=== PATIENT | female | born 2000 | race Caucasian/White ===

== ENCOUNTER 2022-10-28 23:28 | Inpatient (IN) | payer BC ==
[~2022-10-28] VITALS: Ht 154.9 cm; Wt 60.8 kg
[2022-10-28] MEDS ORDERED: LORazepam 2 MG TAB PO PRN (23:55)
[2022-10-28] MEDS ORDERED: IBUPROFEN 400MG TAB PO PRN (23:55)
[2022-10-28] MEDS ORDERED: MAALOX 30 ML SUSP *UDC PO PRN (23:55)
[2022-10-28] MEDS ORDERED: MOM 30ML SUSPENSION UDC PO PRN (23:55)
[2022-10-29] MEDS ORDERED: FLUO20CA22 PO (00:04)
[2022-10-29] MEDS ORDERED: HOME MED LIST COMPLETE! XX SCH (00:05)
[2022-10-29] MEDS: traZODone 50 MG TAB PO PRN ×2 (01:41→21:24)
[2022-10-29 01:49] VITALS: BP 127/81
[2022-10-29 01:50] VITALS: BP 127/81
[2022-10-29] MEDS: FOLIC ACID 1MG TAB PO SCH (08:38)
[2022-10-29] MEDS: MULTIVITAMINS/MINERALS THERAP 1 TAB PO SCH (08:38)
[2022-10-29] MEDS: THIAMINE 100 MG TAB PO SCH ×2 (08:38→21:23)
[2022-10-29] MEDS ORDERED: FLUoxetine 20MG CAP PO SCH (09:00)
[2022-10-29] MEDS ORDERED: NICOTINE 14 MG/24 HR TRANSDERMAL TD PRN (09:35)
[2022-10-29 12:48] VITALS: BP 125/72
[2022-10-29 16:12] VITALS: BP 103/58
[2022-10-29 20:59] VITALS: BP 121/60
[2022-10-29] MEDS: FLUoxetine 20MG CAP PO SCH (21:23)
[2022-10-30 06:15] VITALS: BP 119/66
[2022-10-30] MEDS: THIAMINE 100 MG TAB PO SCH ×2 (09:24→21:28)
[2022-10-30] MEDS: MULTIVITAMINS/MINERALS THERAP 1 TAB PO SCH (09:25)
[2022-10-30] MEDS: FOLIC ACID 1MG TAB PO SCH (09:25)
[2022-10-30] MEDS: FLUTICASONE PROP 0.05% NASAL SPRAY 16 GM (FLONASE) NARES SCH ×2 (10:57→21:27)
[2022-10-30 12:30] VITALS: BP 122/72
[2022-10-30 15:46] VITALS: BP 131/85
[2022-10-30 20:30] VITALS: BP 131/85
[2022-10-30] MEDS ORDERED: FLUTICASONE PROP 0.05% NASAL SPRAY 16 GM (FLONASE) NARES SCH (21:00)
[2022-10-30] MEDS: traZODone 50 MG TAB PO PRN (21:28)
[2022-10-30] MEDS: FLUoxetine 20MG CAP PO SCH (21:28)
[2022-10-31 06:17] VITALS: BP 114/61
[2022-10-31 07:00] VITALS: BP 114/61
[2022-10-31] MEDS: MULTIVITAMINS/MINERALS THERAP 1 TAB PO SCH (09:27)
[2022-10-31] MEDS: THIAMINE 100 MG TAB PO SCH (09:27)
[2022-10-31] MEDS: FOLIC ACID 1MG TAB PO SCH (09:27)
[2022-10-31] MEDS: FLUTICASONE PROP 0.05% NASAL SPRAY 16 GM (FLONASE) NARES SCH (09:27)
[2022-10-31] MEDS ORDERED: FLUT50SP17 NARES (10:25)
[2022-10-31] MEDS ORDERED: NICO14PA TD (10:25)
[2022-10-31] MEDS ORDERED: FLUO20CA22 PO (10:25)
[2022-10-31] MEDS ORDERED: TRAZ-252 PO (10:25)
[2022-10-31 13:54] VITALS: BP 108/55
== END 2022-10-31 14:30 | disposition home or self-care (01) | DRG 754 ==
LOC: M ED 23:28 → M ED INP 23:55 → M PSY 10-29 01:15
PROVIDERS: ADMIT Student in an Organized Health Care Education/Training Program; ATTEND Student in an Organized Health Care Education/Training Program
DX: F34.1 Dysthymic disorder (principal); F43.21 Adjustment disorder with depressed mood; F41.9 Anxiety disorder, unspecified; F10.10 Alcohol abuse, uncomplicated; F17.290 Nicotine dependence, other tobacco product, uncomplicated; F12.10 Cannabis abuse, uncomplicated; R45.851 Suicidal ideations; Z79.899 Other long term (current) drug therapy